=== PATIENT | female | born 1975 | race Caucasian/White ===

== ENCOUNTER 2017-08-19 16:55 | Emergency (ER) | payer BC ==
[~2017-08-19] VITALS: Ht 152.4 cm; Wt 65.0 kg
[2017-08-19 17:14] VITALS: Ht 152.4 cm; Wt 65.0 kg
[2017-08-19 18:14] LABS: BASOPHIL % 0.7 % (0-2); PLATELET COUNT 294 x10^3mcL (130-400); RED CELL DISTRIBUTION WIDTH 12.9 % (11.5-14.5)
[2017-08-19 18:33] LABS: CALCIUM 8.5 mg/dL (8.5-10.1); CARBON DIOXIDE 25.6 mmol/L (21-32); CHLORIDE SERUM 105 mmol/L (98-107); CREATININE SERUM 0.8 mg/dL (0.6-1.0); GFR1 > 60 mL/min; GLUCOSE SERUM 98 mg/dL (74-106); POTASSIUM SERUM 3.6 mmol/L (3.5-5.1); SODIUM SERUM 138 mmol/L (136-145)
[2017-08-19 18:38] LABS: ALBUMIN 3.4 g/dL (3.4-5.0); ALKALINE PHOSPHATASE 92 U/L (46-116); ALT/SGPT 33 U/L (14-59); AST/SGOT 14 U/L (15-37); BILIRUBIN TOTAL 0.3 mg/dL (0.20-1.00); CHOLESTEROL 115 mg/dL (<200); HDL CHOLESTEROL 57 mg/dL (40-60); PHOSPHOROUS 3.8 mg/dL (2.5-4.9); TOTAL PROTEIN, SERUM 7.1 g/dL (6.4-8.2); URIC ACID 4.9 mg/dL (2.6-6.0)
[2017-08-19 20:02] VITALS: BP 122/74
== END 2017-08-19 20:02 | disposition home or self-care (01) ==
LOC: ED 16:55
PROVIDERS: Emergency Medicine
DX: R07.9 Chest pain, unspecified (principal); H10.13 Acute atopic conjunctivitis, bilateral
CPT/HCPCS: 36415; 83880; J1885

== ENCOUNTER 2017-10-29 15:07 | Emergency (ER) | payer BC ==
[~2017-10-29] VITALS: Ht 149.9 cm; Wt 63.2 kg
[2017-10-29 15:36] VITALS: BP 117/68; Ht 149.9 cm; Wt 63.2 kg
[2017-10-29 16:35] LABS: BASOPHIL % 0.5 % (0-2); PLATELET COUNT 260 x10^3mcL (130-400); RED CELL DISTRIBUTION WIDTH 13.5 % (11.5-14.5)
[2017-10-29 16:45] LABS: CALCIUM 8.6 mg/dL (8.5-10.1); CARBON DIOXIDE 28.8 mmol/L (21-32); CHLORIDE SERUM 104 mmol/L (98-107); CREATININE SERUM 0.9 mg/dL (0.6-1.0); GFR1 > 60 mL/min; GLUCOSE SERUM 82 mg/dL (74-106); POTASSIUM SERUM 3.6 mmol/L (3.5-5.1); SODIUM SERUM 139 mmol/L (136-145)
[2017-10-29 16:51] LABS: ALBUMIN 3.8 g/dL (3.4-5.0); ALKALINE PHOSPHATASE 73 U/L (46-116); ALT/SGPT 34 U/L (14-59); AMYLASE 29 U/L (25-115); AST/SGOT 18 U/L (15-37); BILIRUBIN TOTAL 1.7 mg/dL (0.20-1.00); LIPASE 89 IU/L (73-393); TOTAL PROTEIN, SERUM 7.5 g/dL (6.4-8.2)
== END 2017-10-29 17:58 | disposition home or self-care (01) ==
LOC: ED 15:07
PROVIDERS: Emergency Medicine
DX: R10.13 Epigastric pain (principal); Z98.51 Tubal ligation status
CPT/HCPCS: 36415; 83880; J1885; Q0092